=== PATIENT | female | born 1970 ===

== ENCOUNTER 2023-09-09 05:11 | Day surgery (SDC) | payer OTHER ==
[2023-08-31 08:45] LABS: HEMOGLOBIN 12.6 g/dL (12.0-15.00); MEAN CELL VOLUME 76.6 fL (80.00-100.00); MEAN CORPUSCULAR HEMOGLOBIN 24.7 pg (27.00-32.0); MEAN CORPUSCULAR HGB CONC 32.3 g/dl (32.0-36.0); PH,URINE 5.5 (5.0-8.0); PLATELET COUNT 329 K/uL (150-450); RED CELL DISTRIBUTION WIDTH 15.3 % (11.5-14.5); URINE APPEARANCE Clear; URINE BILIRRUBIN Negative (NEGATIVE); URINE BLOOD Negative; URINE COLOR Yellow; URINE GLUCOSE Negative (NEGATIVE); URINE LEUKOCYTE Negative; URINE NITRATE Negative; URINE PROTEIN Negative (NEGATIVE); URINE UROBILINOGEN 0.2 E.U./dl
[2023-08-31 08:49] LABS: URINE BACTERIA 25.1 uL (0.0-1933); URINE RBC 9.3 uL (0.0-20.8)
[2023-08-31 08:56] LABS: URINE WBC 1.3 uL (0.0-23.2)
[2023-08-31 09:11] LABS: INR 0.96; PARTIAL THROMBOPLASTIN TIME 28.6 SECONDS (22.0-34.0); PROTHROMBIN TIME 10.1 SECONDS (9.0-11.5)
[2023-08-31 09:16] LABS: ALBUMIN 4.1 gm/dL (3.4-5.0); BILIRUBIN TOTAL 0.62 mg/dL (0.3-1.2); CALCIUM 9.9 mg/dL (8.5-10.1); CREATININE SERUM 0.71 mg/dL (0.55-1.02); GFR 85.78; GLOBULINA 3.2 G/DL (2.4-3.5); POTASSIUM 4.21 mEq/L (3.5-5.1); TOTAL PROTEIN 7.3 gm/dL (6.4-8.2)
[~2023-09-09 05:11] MED LIST: LEVOTHYROXINE
[2023-09-09] MEDS ORDERED: POVIDONE-IODINE 118 ML BOTT TOP ONE ×2 (07:14→07:15)
[2023-09-09] MEDS ORDERED: DOXYCYCLINE HYCLATE 100MG IV ONE (07:15)
[2023-09-09] MEDS ORDERED: MORGIDOX100 MG PO (08:38)
[2023-09-09] MEDS ORDERED: IBU600 MG PO (08:40)
== END 2023-09-09 12:05 | disposition home or self-care (01) ==
LOC: CIR.AMB 05:11
PROVIDERS: ATTEND Obstetrics & Gynecology
DX: N93.8 Other specified abnormal uterine and vaginal bleeding (principal); N84.0 Polyp of corpus uteri; D25.0 Submucous leiomyoma of uterus; Z88.0 Allergy status to penicillin